=== PATIENT | female | born 1990 | race American Indian/Alaskan Native ===

== ENCOUNTER 2018-07-15 20:50 | Emergency (ER) | payer SELFPAY ==
[2018-07-15] MEDS ORDERED: Sodium Chloride 0.9% 1,000 ML IV SCH ×2 (21:45→23:15)
--- NOTE | 2018-07-15 23:01 | CRLUS ---
Indication: Heavy vaginal bleeding, passing clots Technique: Ultrasound Ob limited Comparison: None Findings: LMP: 04/02/2018 No evidence of an intrauterine . Thickened and heterogeneous endometrium with minimal vascularity. Retained products of conception cannot be excluded. 1.9 centimeter x 1.3 centimeter hypoechoic area in the right ovary. No gross adnexal abnormality. No free fluid in the pelvis. Impression: Thickened heterogeneous endometrium. Retained products of conception cannot be excluded. No evidence of intrauterine . 1.9 centimeter x 1.3 centimeter hypoechoic area involving the right ovary. Follow-up recommended. Dictated by Venkata Espinosa MD @ 07/15/2018 11:00:29 PM Dictated by: Venkata Espinosa MD @ 07/15/2018 23:00:35 (Electronically Signed)
--- NOTE | 2018-07-15 23:41 | EDM.PDOC ---
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 She has a 5 month at [facility]. She is cramping some. She has not done a preg test and she has not seen a Dr . She started to spot the first part of june and she has continued since that time. ) - History of Present Illness Onset: Sudden, Other ( She has been spotting since the first part of June. ) Duration: Day(s):, Other ( The bleeding became heavy today. 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 History: - Infectious Disease History Infectious Disease History: Reports: Chicken Pox Social & Family History - Family History Family Medical History: Noncontributory - Tobacco Use Smoking Status *Q: Never Smoker Second Hand Smoke Exposure: No - Caffeine Use Caffeine Use: Reports: Coffee, Soda - Alcohol Use Days Per Week of Alcohol Use: 2 Number of Drinks Per Day: 3 Total Drinks Per Week: 6 - Recreational Drug Use Recreational Drug Use: Yes Recreational Drug Type: Reports: Marijuana/Hashish Recreational Drug Use Frequency: Monthly ED ROS GENERAL - Review of Systems Review Of Systems: See Below Constitutional: Reports: No Symptoms HEENT: Reports: No Symptoms Respiratory: Reports: No Symptoms Cardiovascular: Reports: No Symptoms Endocrine: Reports: No Symptoms GI/Abdominal: Reports: Other (py has sig vag bleeding and some cramping with that she did not wish to have anything for pain. A iv was started and she was given a liter of fluid. ) : Reports: No Symptoms Musculoskeletal: Reports: No Symptoms Skin: Reports: No Symptoms Neurological: Reports: No Symptoms ED EXAM - Physical Exam Exam: See Below Text/Narrative:: pt is a mildly uncomfortable pt who is having fairly heavy vag bleeding. Exam Limited By: No Limitations General Appearance: Alert, Mild Distress Ears: Normal TMs Nose: Normal Inspection Throat/Mouth: Normal Inspection Head: Atraumatic Neck: Normal Inspection Respiratory/Chest: No Respiratory Distress Cardiovascular: Regular Rate, Rhythm GI/Abdominal Exam: Other (mild tenderness in the lower abdoman. ) Rectal Exam: Deferred (Female) Exam: Other (pt has large clots in the vaginia. The cervix still feels closed and there is not tissue present. ) Course - Vital Signs Last Recorded V/S: Last Vital Signs Temp 36.1 C 07/16/18 00:11 Pulse 91 07/16/18 00:11 Resp 16 07/16/18 00:11 BP 117/75 07/16/18 00:11 Pulse Ox 99 07/16/18 00:11 - Orders/Labs/Meds Labs: Laboratory Tests 07/15/18 07/15/18 07/15/18 Range/Units 21:26 21:26 21:26 WBC 8.5 (4.5-11.0) K/uL RBC 4.26 (3.30-5.50) M/uL Hgb 10.4 L (12.0-15.0) g/dL Hct 33.0 L (36.0-48.0) % MCV 78 L (80-98) fL MCH 24 L (27-31) pg MCHC 32 (32-36) % Plt Count 389 (150-400) K/uL Neut % (Auto) 54 (36-66) % Lymph % (Auto) 34 (24-44) % [place] % (Auto) 7 H (2-6) % Eos % (Auto) 5 H (2-4) % Baso % (Auto) 1 (0-1) % Sodium 140 (140-148) mmol/L Potassium 3.6 (3.6-5.2) mmol/L Chloride 106 (100-108) mmol/L Carbon Dioxide 22 (21-32) mmol/L Anion Gap 12.4 (5.0-14.0) mmol/L BUN 13 (7-18) mg/dL Creatinine 0.8 (0.6-1.0) mg/dL Est Cr Clr Drug Dosing 88.15 mL/min Estimated GFR (MDRD) > 60 (>60) Glucose 112 H (74-106) mg/dL Calcium 8.8 (8.5-10.1) mg/dL Total Bilirubin 0.1 L (0.2-1.0) mg/dL AST 23 (15-37) U/L ALT 34 (12-78) U/L Alkaline Phosphatase 82 (46-116) U/L Total Protein 6.9 (6.4-8.2) g/dL Albumin 3.4 (3.4-5.0) g/dL Globulin 3.5 (2.3-3.5) g/dL Albumin/Globulin Ratio 1.0 L (1.2-2.2) HCG, Quant 1341 H (0-6) mIU/mL Meds: Medications Discontinued Medications Generic Name Dose Route Start Last Admin Trade Name Mikaela PRN Reason Stop Dose Admin Sodium Chloride 1,000 mls @ 999 mls/hr 07/15/18 21:45 07/15/18 21:44 Normal Saline IV 999 mls/hr ASDIRECTED ARTIE Administration Sodium Chloride 1,000 mls @ 999 mls/hr 07/15/18 23:15 Normal Saline IV ASDIRECTED ARTIE - Re-Assessments/Exams Free Text/Narrative Re-Assessment/Exam: 07/15/18 23:48 Us was done which shows no pole and the products of conception. Her quantative HCG is 1300. . I did offer her the ability to stay so we could watch the bleeding here in ER and she wanted to go home. She did not have a friend where she could stay closer to the hosp. 07/22/18 18:57 Departure - Departure Time of Disposition: 23:38 Disposition: Home, Self-Care 01 Condition: Fair Clinical Impression: Miscarriage, threatened, early - Discharge Information Instructions: Miscarriage, [id number] Referrals: PCP,None [Primary Care Provider] - Forms: ED Department Discharge Care Plan Goals: Patient is in the process of a miscarriage at about 15 weeks, Your blood type is a O positive. Low activity, return if your bleeding should increase, vitamins with iron, follow up appointment with Janel Dawson.
[2018-07-16 00:12] VITALS: BP 117/75
== END 2018-07-16 00:13 | disposition home or self-care (01) ==
LOC: JP.ED 20:50
DX: O20.0 Threatened abortion (principal); Z88.0 Allergy status to penicillin
CPT/HCPCS: 36415; 76815; 80053; 84702; 85025; 96360; 99284; J7030

== ENCOUNTER 2019-04-17 13:39 | Inpatient (IN) | payer MEDICAID ==
[2019-04-17] MEDS ORDERED: Acetaminophen 325 MG Tab PO PRN (14:39)
[2019-04-17] MEDS ORDERED: Sodium Chloride 0.9% 10 ML Syringe FLUSH PRN (14:39)
[2019-04-17] MEDS ORDERED: Ondansetron 4 MG/2 ML SDV IV PRN (14:39)
--- NOTE | 2019-04-17 16:23 | PCM.LDHP ---
L&D History of Present Illness - General Date of Service: 04/17/19 Admit Problem/Dx: Patient Status Order with Admit Dx/Problem 04/17/19 14:39 Patient Status [ADT] Routine Admission Diagnosis/Problem Admission Diagnosis/Problem - Related Data Allergies/Adverse Reactions: Allergies Allergy/AdvReac Type Severity Reaction Status Date / Time Penicillins Allergy Unknown Hives Verified 07/15/18 21:02 Home Medications: Home Meds NK [No Known Home Meds] 12/24/12 [History] Past Medical History - Past Health History Medical/Surgical History: Denies Medical/Surgical History Other HEENT History: glasses Cardiovascular History: Reports: None Respiratory History: Reports: None Gastrointestinal History: Reports: None Genitourinary History: Reports: None 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 History: Musculoskeletal History: Reports: None Neurological History: Reports: None Psychiatric History: Reports: None Endocrine/Metabolic History: Reports: None Hematologic History: Reports: Anemia Immunologic History: Reports: None Oncologic (Cancer) History: Reports: None Dermatologic History: Reports: None - Infectious Disease History Infectious Disease History: Reports: None - Past Surgical History Head Surgeries/Procedures: Reports: None Cardiovascular Surgical History: Reports: None Respiratory Surgical History: Reports: None GI Surgical History: Reports: None Female Surgical History: Reports: None Endocrine Surgical History: Reports: None Neurological Surgical History: Reports: None Musculoskeletal Surgical History: Reports: None Oncologic Surgical History: Reports: None Social & Family History - Family History Family Medical History: Noncontributory - Tobacco Use Smoking Status *Q: Never Smoker Second Hand Smoke Exposure: No - Caffeine Use Caffeine Use: Reports: None - Recreational Drug Use Recreational Drug Use: No H&P Review of Systems - Review of Systems: Review Of Systems: See Below General: Reports: No Symptoms HEENT: Reports: No Symptoms Pulmonary: Reports: No Symptoms Cardiovascular: Reports: No Symptoms Gastrointestinal: Reports: No Symptoms Genitourinary: Reports: No Symptoms Musculoskeletal: Reports: No Symptoms Skin: Reports: No Symptoms Psychiatric: Reports: No Symptoms Neurological: Reports: No Symptoms Hematologic/Lymphatic: Reports: No Symptoms Immunologic: Reports: No Symptoms L&D Exam - Exam Exam: See Below - Vital Signs Vital Signs: Last Vital Signs Temp 36.2 C 04/17/19 13:51 Pulse 90 01/19/20 13:51 Resp 16 04/17/19 13:51 BP 105/65 04/17/19 13:51 Pulse Ox 97 04/17/19 13:51 - OB Specific Contraction Intensity: Moderate Movement: Active Heart Tones: Present Heart Rate (FHR) Variability: Moderate (6-25 bmp) Presentation: Vertex - Castro Score Castro Score Cervix Position: Anterior Castro Score Consistency: Soft Castro Score Effacement: >80% Castro Score Dilation: > 5 cm Castro Score 's Station: -2 Castro Score Total: 11 - Exam General: Alert, Oriented, Cooperative HEENT: PERRLA, Conjunctiva Clear, EACs Clear, EOMI, Hearing Intact, Mucosa Moist & Mars, Nares Patent, Normal Nasal Septum, Posterior Pharynx Clear, TMs Clear Neck: Supple, Trachea Midline Lungs: Clear to Auscultation, Normal Respiratory Effort Cardiovascular: Regular Rate, Regular Rhythm GI/Abdominal Exam: Normal Bowel Sounds, Soft, Non-Tender, No Organomegaly, No Distention, No Abnormal Bruit, No Mass, Pelvis Stable Rectal Exam: Normal Exam, Normal Rectal Tone Genitourinary: Normal external exam, Normal bimanual exam, Normal speculum exam , Cervical dilitation Back Exam: Normal Inspection, Full Range of Motion Extremities: Normal Inspection, Normal Range of Motion, Non-Tender, No Pedal Edema, Normal Capillary Refill Skin: Warm, Dry, Intact Neurological: Cranial Nerves Intact, Reflexes Equal Bilateral Psychiatric: Alert, Normal Affect, Normal Mood - Patient Data Lab Results Last 24 hrs: Laboratory Results - last 24 hr 04/17/19 04/17/19 Range/Units 13:41 15:20 Urine Color Yellow (YELLOW) Urine Appearance Clear (CLEAR) Urine pH 6.0 (5.0-8.0) Ur Specific [place] >= 1.030 (1.008-1.030) Urine Protein Trace H (NEGATIVE) mg/dL Urine Glucose (UA) Negative (NEGATIVE) mg/dL Urine Ketones 80 H (NEGATIVE) mg/dL Urine Occult Blood Negative (NEGATIVE) Urine Nitrite Negative (NEGATIVE) Urine Bilirubin Small H (NEGATIVE) Urine Urobilinogen 0.2 (0.2-1.0) EU/dL Ur Leukocyte Esterase Negative (NEGATIVE) Urine RBC 0-5 (0-5) Urine WBC 0-5 (0-5) Ur Epithelial Cells Moderate Amorphous Sediment Not seen Urine Bacteria Few Urine Mucus Many Urine Opiates Screen Negative (NEGATIVE) Ur Oxycodone Screen Negative (NEGATIVE) Urine Methadone Screen Negative (NEGATIVE) Ur Propoxyphene Screen Negative (NEGATIVE) Ur Barbiturates Screen Negative (NEGATIVE) Ur Tricyclics Screen Negative (NEGATIVE) Ur Phencyclidine Scrn Negative (NEGATIVE) Ur Amphetamine Screen Negative (NEGATIVE) U Methamphetamines Scrn Negative (NEGATIVE) Urine MDMA Screen Negative (NEGATIVE) U Benzodiazepines Scrn Negative (NEGATIVE) U Cocaine Metab Screen Negative (NEGATIVE) U Marijuana (THC) Screen Presumptive positive H (NEGATIVE) - Problem List (1) Insufficient care in third trimester SNOMED Code(s): 0232056085155, 2950941564776 ICD Code: O09.33 - SUPRVSN OF PREG W INSUFFICIENT ANTENAT CARE, THIRD TRIMESTER Status: Acute Current Visit: Yes (2) SNOMED Code(s): 58509593 ICD Code: Z34.90 - ENCNTR FOR SUPRVSN OF NORMAL , UNSP, UNSP TRIMESTER Status: Acute Current Visit: Yes Qualifiers: Weeks of gestation: 39 weeks Qualified Code(s): Z3A.39 - 39 weeks gestation of Problem List Initiated/Reviewed/Updated: Yes Orders Last 24hrs: Active Orders 24 hr Category Date Time Status Patient Status [ADT] Routine ADT 04/17/19 14:39 Active Ambulate [RC] PER UNIT ROUTINE Care 04/17/19 14:39 Active Communication Order [RC] ASDIRECTED Care 04/17/19 14:39 Active Communication Order [RC] Per Unit Routine Care 04/17/19 14:39 Active Communication Order [RC] Per Unit Routine Care 04/17/19 14:39 Active Communication Order [RC] Per Unit Routine Care 04/17/19 14:39 Active Communication Order [RC] Per Unit Routine Care 04/17/19 14:39 Active Non Stress Test [RC] Click to Edit Care 04/17/19 14:39 Active Nitrous Oxide Delivery [RC] ASDIRECTED Care 04/17/19 14:39 Active Notify Provider Vital Signs [RC] PRN Care 04/17/19 14:39 Active Notify Provider [RC] PRN Care 04/17/19 14:39 Active OB Check [OM.PC] Click to Edit Care 04/17/19 13:40 Ordered Oxygen Therapy [RC] ASDIRECTED Care 04/17/19 14:39 Active Pulse Oximetry [RC] ASDIRECTED Care 04/17/19 14:39 Active Up ad Josseline [RC] ASDIRECTED Care 04/17/19 14:39 Active VTE/DVT Education [RC] Click to Edit Care 04/17/19 14:43 Active Verify Patient Consent Obtain [RC] ASDIRECTED Care 04/17/19 14:39 Active Vital Signs [RC] PER UNIT ROUTINE Care 04/17/19 14:39 Active Regular Diet [DIET] Diet 04/17/19 Dinner Active Acetaminophen [Tylenol] Med 04/17/19 14:39 Active 650 mg PO Q4H PRN Ondansetron [Zofran] Med 04/17/19 14:39 Active 4 mg IV Q4H PRN Oxytocin/Normal Saline [Pitocin in NS 20 Units/1,000 ML Med 04/17/19 14:45 Active ] 20 unit in 1,000 ml IV TITRATE Sodium Chloride 0.9% [Saline Flush] Med 04/17/19 14:39 Active 10 ml FLUSH ASDIRECTED PRN DVT/VTE Prophylaxis Reflex [OM.PC] Routine Oth 04/17/19 14:39 Ordered Medication Discontinuation Instructions [OM.PC] Routine Oth 04/17/19 14:39 Ordered Saline Lock Insert [OM.PC] Routine Oth 04/17/19 14:39 Ordered Resuscitation Status Routine Resus Stat 04/17/19 14:39 Ordered Medication Orders Acetaminophen (Tylenol) 650 mg PO Q4H PRN PRN Reason: Pain (Mild 1-3) and fever Oxytocin/Sodium Chloride (Pitocin In Ns 20 Units/1,000 Ml) 20 unit in 1,000 mls @ 6 mls/hr IV TITRATE ARTIE; Protocol Last Admin: 04/17/19 15:57 Dose: 2 munits/min, 6 mls/hr Ondansetron HCl (Zofran) 4 mg IV Q4H PRN PRN Reason: Nausea/Vomiting Sodium Chloride (Saline Flush) 10 ml FLUSH ASDIRECTED PRN PRN Reason: Keep Vein Open Assessment/Plan Comment:: 04/17/2019 28 yo here at 39 3/7 weeks gestation with limited care at [place]. She did have a complete ultrasound that showed no abnormalities, and did have basic labs done [id number]-[id number]/bulgy bag of jordan FHTs category one Patient desires to stay and be augmented, she is worried to go home and not be able to make it back to hospital in labor Labs-from past chart, O positive, Hep B neg, Hep C neg, HIV neg, RPR nonreactive , Rubella nonimmune-patient declines having all labs drawn again. GBS testing not done and patient declines treatment for unknown-she was educated on risks and benefits and still declines Patient also educated that she needs monitoring on pitocin and patient states we can do heart tones but not contraction one-patient verbalized understanding that we will not be able to tell if heart tones coordinate with contractions for early intervention, patient verbalizes understanding of risks and benefits. Plan- Will monitor for active labor Will monitor FHTs Will start Pitocin to augment labor Patient would like to use nitrous if needed for pain control Plan and anticipate a vaginal
[2019-04-17] MEDS ORDERED: Misoprostol 200 MCG Tab ONE (22:28)
[2019-04-17] MEDS ORDERED: Methylergonovine 0.2 MG/1 ML Amp ONE (22:28)
[2019-04-17] MEDS ORDERED: Carboprost Tromethamine 250 MCG/1 ML Amp ONE (22:28)
[2019-04-17] MEDS ORDERED: Acetaminophen 325 MG Tab, 50 Tab Bulk Bottle PO PRN (23:34)
[2019-04-17] MEDS ORDERED: Ibuprofen 200 MG Tab, 24 Tab Bulk Bottle PO PRN (23:34)
[2019-04-17] MEDS ORDERED: Witch Hazel Medicated Pads 100/Jar TOP ONE (23:34)
[2019-04-17] MEDS ORDERED: Benzocaine 20% Top Spray 56 GM Bottle TOP ONE (23:34)
--- NOTE | 2019-04-18 00:36 | PCM.DEL ---
L & D Note - General Info Date of Service: 04/17/19 Mother's Due Date: 04/21/19 - Delivery Note Labor: Spontaneous, Augmented by Oxytocin Cervical Ripening Method: Oxytocin Delivery Outcome: Livebirth Delivery Method: Spontaneous Vaginal Delivery-Single Delivery Mode: Spontaneous Presentation: Left Occiput Anterior (AIDE) Nuchal Cord: None Anesthesia Type: Nitrous Oxide Amniotic Fluid Description: Clear Episiotomy Type: None Laceration: None Placenta: Intact, Spontaneous Cord: 3 Vessels Estimated Blood Loss: 400 Resuscitation Needed: No : Stimulated, Warmed Provider: Janel Dawson Score 1 min: 7 Score 5 min: 9 Second Stage Interventions: Reports: Second Nurse Assessed Progress of Descent, Second Nurse Reviewed Contraction Pattern, Second Nurse Reviewed Heart Tones, Encouragement Given, Pushing Effectively, Pushing, McRobert's Position Delivery Comments (Free Text/Narrative):: 04/17/2019 28 yo delivered a viable male infant at 2314 on 04/17/2019 in straight OA position over an intact perineum. was delivered up on to mothers abdomen and placed on a prewarmed blanket. Delayed cord clamped was done and then cord was double clamped and cut by father of . Then mother of brought to be skin to skin. APGARS-7/9, weight-7lbs 11oz, length- 19inches, Infant was dried, stimulated, and warmed. Placenta then came spontaneous and intact, three vessel cord, EBL-400ml. No lacerations noted of vagina, cervix, rectum, or perineum. Infant now stable and skin to skin with mother whom is also stable in labor and delivery room. Stages of labor- [id number] - General Info Date of Service: 04/17/19 Functional Status: Reports: Pain Controlled - Review of Systems General: Reports: No Symptoms HEENT: Reports: No Symptoms Pulmonary: Reports: No Symptoms Cardiovascular: Reports: No Symptoms Gastrointestinal: Reports: No Symptoms Genitourinary: Reports: No Symptoms Musculoskeletal: Reports: No Symptoms Skin: Reports: No Symptoms Neurological: Reports: No Symptoms Psychiatric: Reports: No Symptoms - Patient Data Vitals - Most Recent: Last Vital Signs Temp 36.6 C 04/17/19 21:00 Pulse 67 04/17/19 21:00 Resp 16 04/17/19 21:00 BP 101/52 L 04/17/19 21:00 Pulse Ox 99 04/17/19 22:21 Weight - Most Recent: 113.398 kg I&O - Last 24 Hours: Intake & Output 04/17/19 04/17/19 04/18/19 14:59 22:59 06:59 Intake Total 949 Balance 949 Lab Results Last 24 Hours: Laboratory Results - last 24 hr 04/17/19 04/17/19 04/17/19 Range/Units 13:41 14:45 15:20 WBC 11.0 (4.5-11.0) K/uL RBC 4.69 (3.30-5.50) M/uL Hgb 10.1 L (12.0-15.0) g/dL Hct 33.1 L (36.0-48.0) % MCV 71 L (80-98) fL MCH 22 L (27-31) pg MCHC 31 L (32-36) % Plt Count 403 H (150-400) K/uL Neut % (Auto) 76 H (36-66) % Lymph % (Auto) 16 L (24-44) % [place] % (Auto) 7 H (2-6) % Eos % (Auto) 1 L (2-4) % Baso % (Auto) 1 (0-1) % Urine Color Yellow (YELLOW) Urine Appearance Clear (CLEAR) Urine pH 6.0 (5.0-8.0) Ur Specific [place] >= 1.030 (1.008-1.030) Urine Protein Trace H (NEGATIVE) mg/dL Urine Glucose (UA) Negative (NEGATIVE) mg/dL Urine Ketones 80 H (NEGATIVE) mg/dL Urine Occult Blood Negative (NEGATIVE) Urine Nitrite Negative (NEGATIVE) Urine Bilirubin Small H (NEGATIVE) Urine Urobilinogen 0.2 (0.2-1.0) EU/dL Ur Leukocyte Esterase Negative (NEGATIVE) Urine RBC 0-5 (0-5) Urine WBC 0-5 (0-5) Ur Epithelial Cells Moderate Amorphous Sediment Not seen Urine Bacteria Few Urine Mucus Many Urine Opiates Screen Negative (NEGATIVE) Ur Oxycodone Screen Negative (NEGATIVE) Urine Methadone Screen Negative (NEGATIVE) Ur Propoxyphene Screen Negative (NEGATIVE) Ur Barbiturates Screen Negative (NEGATIVE) Ur Tricyclics Screen Negative (NEGATIVE) Ur Phencyclidine Scrn Negative (NEGATIVE) Ur Amphetamine Screen Negative (NEGATIVE) U Methamphetamines Scrn Negative (NEGATIVE) Urine MDMA Screen Negative (NEGATIVE) U Benzodiazepines Scrn Negative (NEGATIVE) U Cocaine Metab Screen Negative (NEGATIVE) U Marijuana (THC) Screen Presumptive positive H (NEGATIVE) Med Orders - Current: Current Medications Acetaminophen (Tylenol) 650 mg PO Q4H PRN PRN Reason: Pain (Mild 1-3) and fever Acetaminophen (Tylenol Bulk Bottle) 0 mg PO Q4H PRN PRN Reason: Pain Oxytocin/Sodium Chloride (Pitocin In Ns 20 Units/1,000 Ml) 20 unit in 1,000 mls @ 6 mls/hr IV TITRATE ARTIE; Protocol Last Titration: 04/17/19 23:22 Dose: 999 munits/min, 2,997 mls/hr Ibuprofen (Motrin Bulk Bottle) 600 mg PO Q6H PRN PRN Reason: Pain Ondansetron HCl (Zofran) 4 mg IV Q4H PRN PRN Reason: Nausea/Vomiting Sodium Chloride (Saline Flush) 10 ml FLUSH ASDIRECTED PRN PRN Reason: Keep Vein Open Discontinued Medications Benzocaine (Bgkv-Z-Lbkqzzr 20% [place]) 0 gm TOP ONETIME ONE Stop: 04/17/19 23:35 Carboprost Tromethamine (Hemabate Ds) Confirm Administered Dose 250 mcg .ROUTE .STK-MED ONE Stop: 04/17/19 22:29 Last Admin: 04/18/19 00:12 Dose: Not Given Emollient Ointment (Lansinoh Hpa) 1 gm TOP ONETIME ONE Stop: 04/17/19 23:35 Methylergonovine Maleate (Methergine) Confirm Administered Dose 0.2 mg .ROUTE .STK-MED ONE Stop: 04/17/19 22:29 Last Admin: 04/18/19 00:12 Dose: Not Given Misoprostol (Cytotec) Confirm Administered Dose 800 mcg .ROUTE .STK-MED ONE Stop: 04/17/19 22:29 Last Admin: 04/18/19 00:12 Dose: Not Given [place] Coco (Tucks) 1 pad TOP ONETIME ONE Stop: 04/17/19 23:35 - Exam General: Alert, Oriented, Cooperative HEENT: Pupils Equal, Pupils Reactive, EOMI, Mucous Membr. Moist/[place] Neck: Supple Lungs: Clear to Auscultation, Normal Respiratory Effort Cardiovascular: Regular Rate, Regular Rhythm GI/Abdominal Exam: Normal Bowel Sounds, Soft, Non-Tender, No Organomegaly, No Distention, No Abnormal Bruit, No Mass, Pelvis Stable (Female) Exam: Normal External Exam, Normal Speculum Exam, Normal Bimanual Exam, Enlarged Uterus, Vaginal Bleeding Back Exam: Normal Inspection, Full Range of Motion Extremities: Normal Inspection, Normal Range of Motion, Non-Tender, No Pedal Edema, Normal Capillary Refill Skin: Warm, Dry, Intact Neurological: No New Focal Deficit Psy/Mental Status: Alert, Normal Affect, Normal Mood - Problem List & Annotations (1) Insufficient care in third trimester SNOMED Code(s): 7848611193011, 1617951807680 Code(s): O09.33 - SUPRVSN OF PREG W INSUFFICIENT ANTENAT CARE, THIRD TRIMESTER Status: Acute Current Visit: Yes (2) SNOMED Code(s): 50564690 Code(s): Z34.90 - ENCNTR FOR SUPRVSN OF NORMAL , UNSP, UNSP TRIMESTER Status: Acute Current Visit: Yes Qualifiers: Weeks of gestation: 39 weeks Qualified Code(s): Z3A.39 - 39 weeks gestation of (3) Vaginal delivery SNOMED Code(s): 933982196 Code(s): O80 - ENCOUNTER FOR FULL-TERM UNCOMPLICATED DELIVERY Status: Acute Current Visit: Yes (4) Tetrahydrocannabinol (THC) use disorder, mild, abuse SNOMED Code(s): 49192923, 79118418 Code(s): F12.10 - CANNABIS ABUSE, UNCOMPLICATED Status: Acute Current Visit: Yes - Problem List Review Problem List Initiated/Reviewed/Updated: Yes - My Orders Last 24 Hours: My Active Orders 04/17/19 13:40 OB Check [OM.PC] Click To Edit 04/17/19 14:39 Patient Status [ADT] Routine Ambulate [RC] PER UNIT ROUTINE Communication Order [RC] ASDIRECTED Communication Order [RC] Per Unit Routine Communication Order [RC] Per Unit Routine Communication Order [RC] Per Unit Routine Communication Order [RC] Per Unit Routine Non Stress Test [RC] Click to Edit Nitrous Oxide Delivery [RC] ASDIRECTED Notify Provider Vital Signs [RC] PRN Notify Provider [RC] PRN Oxygen Therapy [RC] ASDIRECTED Pulse Oximetry [RC] ASDIRECTED Up ad Josseline [RC] ASDIRECTED Verify Patient Consent Obtain [RC] ASDIRECTED Vital Signs [RC] PER UNIT ROUTINE Acetaminophen [Tylenol] 650 mg PO Q4H PRN Ondansetron [Zofran] 4 mg IV Q4H PRN Sodium Chloride 0.9% [Saline Flush] 10 ml FLUSH ASDIRECTED PRN DVT/VTE Prophylaxis Reflex [OM.PC] Routine Medication Discontinuation Instructions [OM.PC] Routine Saline Lock Insert [OM.PC] Routine Resuscitation Status Routine 04/17/19 14:43 VTE/DVT Education [RC] Click to Edit 04/17/19 14:45 Oxytocin/Normal Saline [Pitocin in NS 20 Units/1,000 ML] 20 unit in 1,000 ml IV TITRATE 04/17/19 23:34 Patient Status [ADT] Routine Vital Signs [RC] PFP CBC WITH AUTO DIFF [HEME] Routine Acetaminophen [Tylenol Bulk Bottle] See Dose Instructions PO Q4H PRN Ibuprofen [Motrin Bulk Bottle] 600 mg PO Q6H PRN Assess Lochia [WOMSER] Per Unit Routine Assess Uterine Involution [WOMSER] Per Unit Routine 04/17/19 23:36 Perineal Care [OM.PC] Per Unit Routine 04/17/19 Dinner Regular Diet [DIET] - Assessment Assessment:: 04/17/2019 28 yo G7 now P5 delivered without complications Insufficient care - Plan Plan:: 04/17/2019 28 yo here at 39 3/7 weeks gestation with limited care at [facility]. She did have a complete ultrasound that showed no abnormalities, and did have basic labs done SVE-4-/bulgy bag of [place] FHTs category one Patient desires to stay and be augmented, she is worried to go home and not be able to make it back to hospital in labor Labs-from past chart, O positive, Hep B neg, Hep C neg, HIV neg, RPR nonreactive , Rubella nonimmune-patient declines having all labs drawn again. GBS testing not done and patient declines treatment for unknown-she was educated on risks and benefits and still declines Patient also educated that she needs monitoring on pitocin and patient states we can do heart tones but not contraction one-patient verbalized understanding that we will not be able to tell if heart tones coordinate with contractions for early intervention, patient verbalizes understanding of risks and benefits. Plan- Will monitor for active labor Will monitor FHTs Will start Pitocin to augment labor Patient would like to use nitrous if needed for pain control Plan and anticipate a vaginal 04/17/2019 Routine cares Encourage and support
[2019-04-18] MEDS: Acetaminophen/Codeine 300-30 MG Tab PO PRN ×2 (02:25→06:56)
[2019-04-18] MEDS: Lanolin 100% Cream 40 GM Tube TOP ONE ×2 (04:01→07:01)
--- NOTE | 2019-04-18 06:32 | PCM.PNPP ---
- General Info Date of Service: 04/18/19 Functional Status: Reports: Pain Controlled - Review of Systems General: Reports: No Symptoms HEENT: Reports: No Symptoms Pulmonary: Reports: No Symptoms Cardiovascular: Reports: No Symptoms Gastrointestinal: Reports: No Symptoms Genitourinary: Reports: No Symptoms Musculoskeletal: Reports: No Symptoms Skin: Reports: No Symptoms Neurological: Reports: No Symptoms Psychiatric: Reports: No Symptoms - General Info Date of Service: 04/18/19 - Patient Data Vital Signs - Most Recent: Last Vital Signs Temp 37.3 C 04/18/19 02:30 Pulse 91 04/18/19 02:30 Resp 18 04/18/19 02:30 BP 108/62 04/18/19 02:30 Pulse Ox 99 04/18/19 02:30 Weight - Most Recent: 113.398 kg I&O - Last 24 Hours: Intake & Output 04/17/19 04/17/19 04/18/19 14:59 22:59 06:59 Intake Total 2949 Balance 2949 Lab Results - Last 24 Hours: Laboratory Results - last 24 hr 04/17/19 04/17/19 04/17/19 Range/Units 13:41 14:45 15:20 WBC 11.0 (4.5-11.0) K/uL RBC 4.69 (3.30-5.50) M/uL Hgb 10.1 L (12.0-15.0) g/dL Hct 33.1 L (36.0-48.0) % MCV 71 L (80-98) fL MCH 22 L (27-31) pg MCHC 31 L (32-36) % Plt Count 403 H (150-400) K/uL Neut % (Auto) 76 H (36-66) % Lymph % (Auto) 16 L (24-44) % [place] % (Auto) 7 H (2-6) % Eos % (Auto) 1 L (2-4) % Baso % (Auto) 1 (0-1) % Urine Color Yellow (YELLOW) Urine Appearance Clear (CLEAR) Urine pH 6.0 (5.0-8.0) Ur Specific [place] >= 1.030 (1.008-1.030) Urine Protein Trace H (NEGATIVE) mg/dL Urine Glucose (UA) Negative (NEGATIVE) mg/dL Urine Ketones 80 H (NEGATIVE) mg/dL Urine Occult Blood Negative (NEGATIVE) Urine Nitrite Negative (NEGATIVE) Urine Bilirubin Small H (NEGATIVE) Urine Urobilinogen 0.2 (0.2-1.0) EU/dL Ur Leukocyte Esterase Negative (NEGATIVE) Urine RBC 0-5 (0-5) Urine WBC 0-5 (0-5) Ur Epithelial Cells Moderate Amorphous Sediment Not seen Urine Bacteria Few Urine Mucus Many Urine Opiates Screen Negative (NEGATIVE) Ur Oxycodone Screen Negative (NEGATIVE) Urine Methadone Screen Negative (NEGATIVE) Ur Propoxyphene Screen Negative (NEGATIVE) Ur Barbiturates Screen Negative (NEGATIVE) Ur Tricyclics Screen Negative (NEGATIVE) Ur Phencyclidine Scrn Negative (NEGATIVE) Ur Amphetamine Screen Negative (NEGATIVE) U Methamphetamines Scrn Negative (NEGATIVE) Urine MDMA Screen Negative (NEGATIVE) U Benzodiazepines Scrn Negative (NEGATIVE) U Cocaine Metab Screen Negative (NEGATIVE) U Marijuana (THC) Screen Presumptive positive H (NEGATIVE) 04/18/19 Range/Units 05:30 WBC 13.1 H (4.5-11.0) K/uL RBC 4.03 (3.30-5.50) M/uL Hgb 8.5 L (12.0-15.0) g/dL Hct 28.7 L (36.0-48.0) % MCV 71 L (80-98) fL MCH 21 L (27-31) pg MCHC 30 L (32-36) % Plt Count 366 (150-400) K/uL Neut % (Auto) 73 H (36-66) % Lymph % (Auto) 17 L (24-44) % [place] % (Auto) 10 H (2-6) % Eos % (Auto) 1 L (2-4) % Baso % (Auto) 0 (0-1) % Urine Color (YELLOW) Urine Appearance (CLEAR) Urine pH (5.0-8.0) Ur Specific [place] (1.008-1.030) Urine Protein (NEGATIVE) mg/dL Urine Glucose (UA) (NEGATIVE) mg/dL Urine Ketones (NEGATIVE) mg/dL Urine Occult Blood (NEGATIVE) Urine Nitrite (NEGATIVE) Urine Bilirubin (NEGATIVE) Urine Urobilinogen (0.2-1.0) EU/dL Ur Leukocyte Esterase (NEGATIVE) Urine RBC (0-5) Urine WBC (0-5) Ur Epithelial Cells Amorphous Sediment Urine Bacteria Urine Mucus Urine Opiates Screen (NEGATIVE) Ur Oxycodone Screen (NEGATIVE) Urine Methadone Screen (NEGATIVE) Ur Propoxyphene Screen (NEGATIVE) Ur Barbiturates Screen (NEGATIVE) Ur Tricyclics Screen (NEGATIVE) Ur Phencyclidine Scrn (NEGATIVE) Ur Amphetamine Screen (NEGATIVE) U Methamphetamines Scrn (NEGATIVE) Urine MDMA Screen (NEGATIVE) U Benzodiazepines Scrn (NEGATIVE) U Cocaine Metab Screen (NEGATIVE) U Marijuana (THC) Screen (NEGATIVE) Med Orders - Current: Current Medications Acetaminophen (Tylenol) 650 mg PO Q4H PRN PRN Reason: Pain (Mild 1-3) and fever Acetaminophen (Tylenol Bulk Bottle) 0 mg PO Q4H PRN PRN Reason: Pain Last Admin: 04/18/19 00:45 Dose: 650 mg Acetaminophen/Codeine Phosphate (Tylenol With Codeine No.3 300mg/30mg) 1 tab PO Q4H PRN PRN Reason: Pain (severe 7-10) Last Admin: 04/18/19 02:25 Dose: 1 tab Oxytocin/Sodium Chloride (Pitocin In Ns 20 Units/1,000 Ml) 20 unit in 1,000 mls @ 6 mls/hr IV TITRATE ARTIE; Protocol Last Titration: 04/17/19 23:22 Dose: 999 munits/min, 2,997 mls/hr Ibuprofen (Motrin Bulk Bottle) 600 mg PO Q6H PRN PRN Reason: Pain Last Admin: 04/18/19 00:46 Dose: 600 mg Ondansetron HCl (Zofran) 4 mg IV Q4H PRN PRN Reason: Nausea/Vomiting Sodium Chloride (Saline Flush) 10 ml FLUSH ASDIRECTED PRN PRN Reason: Keep Vein Open Discontinued Medications Benzocaine (Zogs-G-Ylsfzzn 20% [place]) 0 gm TOP ONETIME ONE Stop: 04/17/19 23:35 Last Admin: 04/18/19 04:01 Dose: Not Given Carboprost Tromethamine (Hemabate Ds) Confirm Administered Dose 250 mcg .ROUTE .STK-MED ONE Stop: 04/17/19 22:29 Last Admin: 04/18/19 00:12 Dose: Not Given Emollient Ointment (Lansinoh Hpa) 1 gm TOP ONETIME ONE Stop: 04/17/19 23:35 Last Admin: 04/18/19 04:01 Dose: Not Given Methylergonovine Maleate (Methergine) Confirm Administered Dose 0.2 mg .ROUTE .STK-MED ONE Stop: 04/17/19 22:29 Last Admin: 04/18/19 00:12 Dose: Not Given Misoprostol (Cytotec) Confirm Administered Dose 800 mcg .ROUTE .STK-MED ONE Stop: 04/17/19 22:29 Last Admin: 04/18/19 00:12 Dose: Not Given [place] Coco (Tucks) 1 pad TOP ONETIME ONE Stop: 04/17/19 23:35 Last Admin: 04/18/19 04:02 Dose: Not Given - Interaction Disposition, : [place] in Room with Family Infant Interaction: Holding Infant Infant Feeding: Breastfed Infant; Nursed Well Support Person: - Recovery Exam Fundal Tone: Firm Fundal Level: At Umbilicus Fundal Placement: Midline Lochia Amount: Moderate, Large Lochia Color: Rubra/Red Perineum Description: Intact, Minimal Bruising/Swelling Episiotomy/Laceration: None Bladder Status: Nonpalpable Urinary Elimination: Not Voiding - Exam General: Alert, Oriented, Cooperative HEENT: Pupils Equal Neck: Supple Lungs: Clear to Auscultation, Normal Respiratory Effort Cardiovascular: Regular Rate, Regular Rhythm GI/Abdominal Exam: Normal Bowel Sounds, Soft, Non-Tender, No Organomegaly, No Distention, No Abnormal Bruit, No Mass, Pelvis Stable Extremities: Normal Inspection, Normal Range of Motion, Non-Tender, No Pedal Edema, Normal Capillary Refill Skin: Warm, Dry, Intact Neurological: No New Focal Deficit Psy/Mental Status: Alert, Normal Affect, Normal Mood - Problem List & Annotations (1) Insufficient care in third trimester SNOMED Code(s): 1336137685136, 3797847041689 Code(s): O09.33 - SUPRVSN OF PREG W INSUFFICIENT ANTENAT CARE, THIRD TRIMESTER Status: Acute Current Visit: Yes (2) SNOMED Code(s): 44212442 Code(s): Z34.90 - ENCNTR FOR SUPRVSN OF NORMAL , UNSP, UNSP TRIMESTER Status: Acute Current Visit: Yes Qualifiers: Weeks of gestation: 39 weeks Qualified Code(s): Z3A.39 - 39 weeks gestation of (3) Vaginal delivery SNOMED Code(s): 011908810 Code(s): O80 - ENCOUNTER FOR FULL-TERM UNCOMPLICATED DELIVERY Status: Acute Current Visit: Yes (4) Tetrahydrocannabinol (THC) use disorder, mild, abuse SNOMED Code(s): 42667496, 35717794 Code(s): F12.10 - CANNABIS ABUSE, UNCOMPLICATED Status: Acute Current Visit: Yes - Problem List Review Problem List Initiated/Reviewed/Updated: Yes - My Orders Last 24 Hours: My Active Orders 04/17/19 13:40 OB Check [OM.PC] Click to Edit 04/17/19 14:39 Patient Status [ADT] Routine Ambulate [RC] PER UNIT ROUTINE Communication Order [RC] ASDIRECTED Communication Order [RC] Per Unit Routine Communication Order [RC] Per Unit Routine Communication Order [RC] Per Unit Routine Communication Order [RC] Per Unit Routine Non Stress Test [RC] Click to Edit Notify Provider Vital Signs [RC] PRN Notify Provider [RC] PRN Oxygen Therapy [RC] ASDIRECTED Pulse Oximetry [RC] ASDIRECTED Up ad Josseline [RC] ASDIRECTED Vital Signs [RC] PER UNIT ROUTINE Acetaminophen [Tylenol] 650 mg PO Q4H PRN Ondansetron [Zofran] 4 mg IV Q4H PRN Sodium Chloride 0.9% [Saline Flush] 10 ml FLUSH ASDIRECTED PRN DVT/VTE Prophylaxis Reflex [OM.PC] Routine Medication Discontinuation Instructions [OM.PC] Routine Saline Lock Insert [OM.PC] Routine Resuscitation Status Routine 04/17/19 14:45 Oxytocin/Normal Saline [Pitocin in NS 20 Units/1,000 ML] 20 unit in 1,000 ml IV TITRATE 04/17/19 23:34 Patient Status [ADT] Routine Vital Signs [RC] PFP Acetaminophen [Tylenol Bulk Bottle] See Dose Instructions PO Q4H PRN Ibuprofen [Motrin Bulk Bottle] 600 mg PO Q6H PRN Assess Lochia [WOMSER] Per Unit Routine Assess Uterine Involution [WOMSER] Per Unit Routine 04/17/19 23:36 Perineal Care [OM.PC] Per Unit Routine 04/17/19 Dinner Regular Diet [DIET] 04/18/19 02:13 Acetaminophen/Codeine [Tylenol with Codeine No.3 300MG/30MG] 1 tab PO Q4H PRN - Assessment Assessment:: 04/17/2019 28 yo G7 now P5 delivered without complications Insufficient care 04/18/2019 day one Insufficient care well Fundus firm and bleeding decreasing Hgb-8.5 down from 10.1 - Plan Plan:: 04/17/2019 28 yo here at 39 3/7 weeks gestation with limited care at [place]. She did have a complete ultrasound that showed no abnormalities, and did have basic labs done SVE--/[place] FHTs category one Patient desires to stay and be augmented, she is worried to go home and not be able to make it back to hospital in labor Labs-from past chart, O positive, Hep B neg, Hep C neg, HIV neg, RPR nonreactive , Rubella nonimmune-patient declines having all labs drawn again. GBS testing not done and patient declines treatment for unknown-she was educated on risks and benefits and still declines Patient also educated that she needs monitoring on pitocin and patient states we can do heart tones but not contraction one-patient verbalized understanding that we will not be able to tell if heart tones coordinate with contractions for early intervention, patient verbalizes understanding of risks and benefits. Plan- Will monitor for active labor Will monitor FHTs Will start Pitocin to augment labor Patient would like to use nitrous if needed for pain control Plan and anticipate a vaginal 04/17/2019 Routine cares Encourage and support 04/18/2019 Continue routine cares Continue to encourage and support
[2019-04-19 08:24] VITALS: BP 106/74; PULSE 80
--- NOTE | 2019-04-19 09:18 | PCM.PNPP ---
- General Info Date of Service: 04/19/19 Functional Status: Reports: Pain Controlled - Review of Systems General: Reports: No Symptoms HEENT: Reports: No Symptoms Pulmonary: Reports: No Symptoms Cardiovascular: Reports: No Symptoms Gastrointestinal: Reports: No Symptoms Genitourinary: Reports: No Symptoms Musculoskeletal: Reports: No Symptoms Skin: Reports: No Symptoms Neurological: Reports: No Symptoms Psychiatric: Reports: No Symptoms - General Info Date of Service: 04/19/19 - Patient Data Vital Signs - Most Recent: Last Vital Signs Temp 36.2 C 04/19/19 08:23 Pulse 80 04/19/19 08:23 Resp 16 04/19/19 08:23 BP 106/74 04/19/19 08:23 Pulse Ox 98 04/19/19 08:23 Weight - Most Recent: 113.398 kg I&O - Last 24 Hours: Intake & Output 04/18/19 04/19/19 04/19/19 22:59 06:59 14:59 Intake Total 1000 Balance 1000 Med Orders - Current: Current Medications Acetaminophen (Tylenol) 650 mg PO Q4H PRN PRN Reason: Pain (Mild 1-3) and fever Acetaminophen (Tylenol Bulk Bottle) 0 mg PO Q4H PRN PRN Reason: Pain Last Admin: 04/18/19 00:45 Dose: 650 mg Acetaminophen/Codeine Phosphate (Tylenol With Codeine No.3 300mg/30mg) 1 tab PO Q4H PRN PRN Reason: Pain (severe 7-10) Last Admin: 04/18/19 06:56 Dose: 1 tab Oxytocin/Sodium Chloride (Pitocin In Ns 20 Units/1,000 Ml) 20 unit in 1,000 mls @ 6 mls/hr IV TITRATE ARTIE; Protocol Last Titration: 04/17/19 23:22 Dose: 999 munits/min, 2,997 mls/hr Ibuprofen (Motrin Bulk Bottle) 600 mg PO Q6H PRN PRN Reason: Pain Last Admin: 04/18/19 00:46 Dose: 600 mg Ondansetron HCl (Zofran) 4 mg IV Q4H PRN PRN Reason: Nausea/Vomiting Sodium Chloride (Saline Flush) 10 ml FLUSH ASDIRECTED PRN PRN Reason: Keep Vein Open Discontinued Medications Benzocaine (Gqtg-Z-Ptxulbk 20% [place]) 0 gm TOP ONETIME ONE Stop: 04/17/19 23:35 Last Admin: 04/18/19 04:01 Dose: Not Given Carboprost Tromethamine (Hemabate Ds) Confirm Administered Dose 250 mcg .ROUTE .STK-MED ONE Stop: 04/17/19 22:29 Last Admin: 04/18/19 00:12 Dose: Not Given Emollient Ointment (Lansinoh Hpa) 1 gm TOP ONETIME ONE Stop: 04/17/19 23:35 Last Admin: 04/18/19 07:01 Dose: 1 applicful Methylergonovine Maleate (Methergine) Confirm Administered Dose 0.2 mg .ROUTE .STK-MED ONE Stop: 04/17/19 22:29 Last Admin: 04/18/19 00:12 Dose: Not Given Misoprostol (Cytotec) Confirm Administered Dose 800 mcg .ROUTE .STK-MED ONE Stop: 04/17/19 22:29 Last Admin: 04/18/19 00:12 Dose: Not Given Witch Coco (Tucks) 1 pad TOP ONETIME ONE Stop: 04/17/19 23:35 Last Admin: 04/18/19 04:02 Dose: Not Given - Infant Interaction Disposition, : in Room with Family Infant Interaction: Holding Feeding: Breastfed ; Nursed Well Support Person: - Recovery Exam Fundal Tone: Firm Fundal Level: At Umbilicus Fundal Placement: Midline Lochia Amount: Small Lochia Color: Rubra/Red Perineum Description: Intact, Minimal Bruising/Swelling Episiotomy/Laceration: None Bladder Status: Nonpalpable Urinary Elimination: Not Voiding - Exam General: Alert, Oriented HEENT: Pupils Equal Neck: Supple Lungs: Clear to Auscultation, Normal Respiratory Effort Cardiovascular: Regular Rate, Regular Rhythm GI/Abdominal Exam: Normal Bowel Sounds, Soft, Non-Tender, No Distention, Pelvis Stable Extremities: Normal Inspection, Normal Range of Motion, Non-Tender, No Pedal Edema, Normal Capillary Refill Skin: Warm, Dry, Intact Neurological: No New Focal Deficit Psy/Mental Status: Alert, Normal Affect, Normal Mood - Problem List & Annotations (1) Insufficient care in third trimester SNOMED Code(s): 5513413716475, 6212377140832 Code(s): O09.33 - SUPRVSN OF PREG W INSUFFICIENT ANTENAT CARE, THIRD TRIMESTER Status: Acute Current Visit: Yes (2) SNOMED Code(s): 63425047 Code(s): Z34.90 - ENCNTR FOR SUPRVSN OF NORMAL , UNSP, UNSP TRIMESTER Status: Acute Current Visit: Yes Qualifiers: Weeks of gestation: 39 weeks Qualified Code(s): Z3A.39 - 39 weeks gestation of (3) Tetrahydrocannabinol (THC) use disorder, mild, abuse SNOMED Code(s): 10658564, 36490314 Code(s): F12.10 - CANNABIS ABUSE, UNCOMPLICATED Status: Acute Current Visit: Yes (4) Vaginal delivery SNOMED Code(s): 672047240 Code(s): O80 - ENCOUNTER FOR FULL-TERM UNCOMPLICATED DELIVERY Status: Acute Current Visit: Yes - Problem List Review Problem List Initiated/Reviewed/Updated: Yes - My Orders Last 24 Hours: My Active Orders 04/19/19 09:15 Ready for Discharge [RC] PER UNIT ROUTINE - Assessment Assessment:: 04/17/2019 28 yo G7 now P5 delivered without complications Insufficient care 04/18/2019 day one Insufficient care well Fundus firm and bleeding decreasing Hgb-8.5 down from 10.1 04/19/19 PP day 2, normal exam Bleeding light and FF going well Asymptomatic with hemoglobin, not rechecked - Plan Plan:: 04/17/2019 28 yo here at 39 3/7 weeks gestation with limited care at [facility]. She did have a complete ultrasound that showed no abnormalities, and did have basic labs done SVE--/karon bag of [place] FHTs category one Patient desires to stay and be augmented, she is worried to go home and not be able to make it back to hospital in labor Labs-from past chart, O positive, Hep B neg, Hep C neg, HIV neg, RPR nonreactive , Rubella nonimmune-patient declines having all labs drawn again. GBS testing not done and patient declines treatment for unknown-she was educated on risks and benefits and still declines Patient also educated that she needs monitoring on pitocin and patient states we can do heart tones but not contraction one-patient verbalized understanding that we will not be able to tell if heart tones coordinate with contractions for early intervention, patient verbalizes understanding of risks and benefits. Plan- Will monitor for active labor Will monitor FHTs Will start Pitocin to augment labor Patient would like to use nitrous if needed for pain control Plan and anticipate a vaginal 04/17/2019 Routine cares Encourage and support 04/18/2019 Continue routine cares Continue to encourage and support 04/19/19 Discharge home today, warning s/s taught to mother Continue pp cares until discharge, support 6 week pp check with Janel
== END 2019-04-19 10:30 | disposition home or self-care (01) | DRG 806 ==
LOC: JP.OBCHECK 13:39 → JP.OB 14:30 → OBSVTOIN 23:14 → JP.MS 23:45
PROVIDERS: ADMIT Advanced Practice Midwife; ATTEND Advanced Practice Midwife
PROC: 10E0XZZ Delivery of Products of Conception, External Approach (ICD-10-PCS; principal; 2019-04-17)
DX: O99.02 Anemia complicating childbirth (principal); O99.324 Drug use complicating childbirth; Z37.0 Single live birth; D64.9 Anemia, unspecified; Z3A.39 39 weeks gestation of pregnancy; F12.10 Cannabis abuse, uncomplicated
CPT/HCPCS: 36415; 59409; 80305-QW; 81001; 85025; 99211; A9270-GY; J2590

== ENCOUNTER 2020-01-03 22:55 | Emergency (ER) | payer MEDICAID ==
[2020-01-03 23:13] VITALS: BP 144/90; PULSE 125
--- NOTE | 2020-01-03 23:43 | EDM.PDOC ---
ED HPI GENERAL MEDICAL PROBLEM - General Chief Complaint: ENT Problem Stated Complaint: SWOLLEN TONSILS Time Seen by Provider: 01/03/20 23:20 Source of Information: Reports: Patient History Limitations: Reports: No Limitations - History of Present Illness INITIAL COMMENTS - FREE TEXT/NARRATIVE: 29-year-old female with a sore throat for the past 2 days, difficulty swallowing but no shortness of breath or other symptoms other than low-grade fever. No nausea or vomiting. Feels like her throat is swollen. Onset: Gradual Duration: Day(s): (2 days) Associated Symptoms: Reports: Fever/Chills, Malaise. Denies: Chest Pain, Cough, Nausea/Vomiting, Shortness of Breath tonsills Pain Score (Numeric/FACES): 9 - Related Data Allergies Allergy/AdvReac Type Severity Reaction Status Date / Time Penicillins Allergy Unknown Hives Verified 01/03/20 23:08 Home Meds: Home Meds NK [No Known Home Meds] 12/24/12 [History] Past Medical History - Past Health History Medical/Surgical History: Denies Medical/Surgical History HEENT History: Reports: Other (See Below) Other HEENT History: glasses Cardiovascular History: Reports: None Respiratory History: Reports: None Gastrointestinal History: Reports: None Genitourinary History: Reports: None DECORATING CONSULTANT History: Reports: Other DECORATING CONSULTANT History: Musculoskeletal History: Reports: None Neurological History: Reports: None Psychiatric History: Reports: Anxiety, Depression Endocrine/Metabolic History: Reports: Obesity/BMI 30+ Hematologic History: Reports: Anemia Immunologic History: Reports: None Oncologic (Cancer) History: Reports: None Dermatologic History: Reports: None - Infectious Disease History Infectious Disease History: Reports: Chicken Pox - Past Surgical History Head Surgeries/Procedures: Reports: None Social & Family History - Family History Family Medical History: Noncontributory - Tobacco Use Smoking Status *Q: Never Smoker - Caffeine Use Caffeine Use: Reports: Coffee - Recreational Drug Use Recreational Drug Use: Yes Drug Use in Last 12 Months: Yes Recreational Drug Type: Reports: Marijuana/Hashish Recreational Drug Use Frequency: Rarely ED ROS ENT - Review of Systems Review Of Systems: See Below Constitutional: Reports: Fever, Chills, Malaise HEENT: Reports: Throat Pain Respiratory: Denies: Shortness of Breath, Cough Cardiovascular: Denies: Chest Pain GI/Abdominal: Denies: Nausea, Vomiting Skin: Reports: No Symptoms. Denies: Rash Neurological: Denies: Headache ED EXAM, ENT - Physical Exam Exam: See Below Exam Limited By: No Limitations General Appearance: Alert, No Apparent Distress (Looks uncomfortable but not distressed) Ears: Normal TMs Mouth/Throat: Other (Bilateral tonsillar swelling, erythema and exudate is present) Neck: Lymphadenopathy (R) (Mild adenopathy), Lymphadenopathy (L) Respiratory/Chest: No Respiratory Distress, Lungs Clear Neurological: Alert, Oriented Skin: Warm, Dry Course - Vital Signs Last Recorded V/S: Last Vital Signs Temp 100.5 F 01/03/20 23:13 Pulse 125 H 01/03/20 23:13 Resp 17 01/03/20 23:13 BP 144/90 H 01/03/20 23:13 Pulse Ox 98 01/03/20 23:13 - Re-Assessments/Exams Free Text/Narrative Re-Assessment/Exam: 01/04/20 17:25 Rapid strep was obtained which was positive. Patient was placed on 10 cc of Omnicef twice daily for 7 days. She can recheck in 2 to 3 days if not improving satisfactorily, or return sooner if worsening despite treatment. Increase diet as tolerated concentrating on fluids. Anti-inflammatories will help with pain. Departure - Departure Time of Disposition: 00:01 Disposition: Home, Self-Care 01 Clinical Impression: Strep pharyngitis - Discharge Information Instructions: Strep Throat, Adult, Hcst-fi-Qias Referrals: PCP,None [Primary Care Provider] - Forms: ED Department Discharge Care Plan Goals: Take 2 teaspoons of antibiotic twice daily for at least 7 days. Recheck in 2 to 3 days if not improving despite the medicine, and increase diet as tolerated especially concentrating on liquids to stay hydrated. Return sooner if worsening or concerns. Sepsis Event Note (ED) - Evaluation Sepsis Screening Result: No Definite Risk
== END 2020-01-04 00:09 | disposition home or self-care (01) ==
LOC: JP.ED 22:55
DX: J02.0 Streptococcal pharyngitis (principal); E66.9 Obesity, unspecified; Z68.42 Body mass index [BMI] 45.0-49.9, adult; Z88.0 Allergy status to penicillin
CPT/HCPCS: 87880-QW; 99283; 99284